=== PATIENT | male | born 1985 | race Caucasian/White ===

== ENCOUNTER 2019-11-05 22:18 | Emergency (ER) | payer BC, SELFPAY ==
[2019-11-05 22:29] VITALS: BP 153/101; PULSE 89; RESP 24; TEMP 36.2; O2SAT 97; BMI 36.9
--- NOTE | 2019-11-05 22:37 | CT_ITS ---
PROCEDURE: CT ABDOMEN PELVIS W CON CLINICAL INDICATION: abd pain Upper abdominal pain with nausea and vomiting COMPARISON: CT ABDOMEN PELVIS WO CON from 07/27/2019 TECHNIQUE: IV Contrast: 75ML OPTIRAY 350 Oral Contrast 20ml Gastroview Axial images obtained with sagittal and coronal reformats. All CT scans at the facility use one or more dose reduction, viz: automated exposure control, ma/kV adjustment per patient size (including targeted exams where dose is matched to indication, i.e. head), or iterative reconstruction technique. FINDINGS: LOWER THORAX: No acute finding ABDOMEN & PELVIS: There is diffuse fatty liver infiltration. There is mild splenomegaly at 13 cm. The adrenal glands, pancreas, gallbladder, and kidneys have an unremarkable appearance. There is a stable hypodensity of the left hepatic lobe laterally at 9 mm and may be due to small cyst. No evidence of appendicitis or diverticulitis. No intestinal obstruction or free air. The bowel gas pattern is nonspecific. There are some nondistended fluid-filled loops of large and small bowel with a few scattered air-fluid levels. There is some fatty infiltration of the wall of the terminal ileum nonspecific. This is nonspecific but may be seen with chronic inflammatory bowel disease. No abscess or focal acute inflammatory changes are evident. The the there are no acute bony anomalies. Collateral vessels are present in the inguinal regions on both sides IMPRESSION: 1. Nonspecific bowel gas pattern with scattered air-fluid levels in large and small bowel without distention and mild fatty infiltration of the terminal ileum which could be seen with chronic or prior episodes of enteritis. 2. Fatty liver with mild splenomegaly 3. Collateral veins in the inguinal regions Dictated by: Bernardo Nuñez MD 11/06/2019 07:52 Electronically signed by Bernardo Nuñez MD in [place] 11/06/2019 07:52
--- NOTE | 2019-11-05 22:47 | HMH.EDNVD ---
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 The time I documented below is in addition to time spent performing reported procedures but includes the following listed in this critical care notation. Medical Decision Making - Medical Records Medical records reviewed: Yes: I reviewed the patient's medical records. - Kaz Inquiry Pt receiving controlled substance: No Vital Signs: 11/05/19 22:29 Temperature 97.2 F L Temperature Source Oral Pulse Rate [Right Brachial] 89 Respiratory Rate 24 Blood Pressure [Right Arm] 153/101 H Blood Pressure Mean [Right Arm] 118 Blood Pressure Source [Right Arm] Automatic Cuff Blood Pressure Position [Right Arm] Sitting 02 Sat by Pulse Oximetry 97 Oxygen Delivery Method Room Air - Lab Data Lab results reviewed: Yes: I reviewed the patient's lab results. Lab Results 11/05/19 22:30: Urine Color Yellow, Urine Appearance Clear, Urine pH 6.0, Ur Specific [place] >= 1.030, Urine Protein 1+, Urine Glucose (UA) Negative, Urine Ketones Negative, Urine Blood Negative, Urine Nitrate Negative, Urine Bilirubin Negative, Urine Urobilinogen 0.2, Ur Leukocyte Esterase Negative, Urine WBC Occasional, Ur Squamous Epith Cells Occasional, Urine Bacteria Trace 11/05/19 22:44: WBC 10.4, RBC 5.21, Hgb 15.5, Hct 46.2, MCV 88.8, MCH 29.7, MCHC 33.5, RDW 13.7, Plt Count 449 H, MPV 6.5 L, Neut % (Auto) 69.3, Lymph % (Auto) 20.5, [place] % (Auto) 7.8, Eos % (Auto) 1.8, Baso % (Auto) 0.6, Neut # (Auto) 7.2, Lymph # (Auto) 2.1, [place] # (Auto) 0.8, Eos # (Auto) 0.2, Baso # (Auto) 0.1 11/05/19 22:44: Sodium 134 L, Potassium 3.1 L, Chloride 99, Carbon Dioxide 26, Anion Gap 12.1, BUN 19, Creatinine 0.90, Estimated Creat Clear 197, Estimated GFR 97, Est GFR ( Amer) 117, Glucose 118 H, Calcium 9.2, Total Bilirubin 0.8, AST 66 H, ALT 76, Alkaline Phosphatase 118, Total Protein 7.9, Albumin 4.5, Globulin 3.4 H, Albumin/Globulin Ratio 1.3, Amylase 55, Lipase 216 11/05/19 22:44: Magnesium 1.7 Result diagrams: 11/05/19 22:44 11/05/19 22:44 Orders (Tests/Meds): ED MEDICATIONS Generic Name Dose Route Start Last Admin Trade Name Freq PRN Reason Stop Dose Admin Sodium Chloride 1,000 mls @ 999 mls/hr 11/05/19 22:45 11/05/19 22:45 Sod Chlor 0.9% 1000ml Bag IV 11/05/19 23:45 999 mls/hr .Q1H1M MIKE Administration Sodium Chloride 8 ml 11/05/19 22:38 Sodium Chloride 0.9% 10ml Vial IV 12/05/19 22:37 NEEDED PRN dilute pepcid Discontinued Medications Generic Name Dose Route Start Last Admin Trade Name Freq PRN Reason Stop Dose Admin Famotidine 20 mg 11/05/19 22:38 11/05/19 22:45 Pepcid 20mg/2ml Vial IV 11/05/19 22:39 20 mg ONCE ONE Administration Ioversol 75 ml 11/05/19 23:15 11/05/19 23:19 Rad-Optiray 350 100ml Vial IV 11/05/19 23:16 75 ml ONCE ONE Administration Protocol Metoclopramide HCl 10 mg 11/05/19 22:38 11/05/19 22:45 Reglan 10mg/2ml Vial IVP 11/05/19 22:39 10 mg ONCE ONE Administration Sodium Chloride 10 ml 11/05/19 23:15 11/05/19 23:19 Rad-Saline Flush 10ml Syringe IV 11/05/19 23:16 10 ml ONCE ONE Administration ORDERS Category Date Time Status CT abdomen pelvis w con Stat Cat Scan 11/05/19 22:37 Taken - CT Data CT Scan: Abdomen, Pelvis Time Received: 23:[address] Reviewed: Yes: I h
[2019-11-05 22:49] LABS: Microscopic, Urine URINE MICROSCOPIC (MICROSCOPIC)
[2019-11-05 22:51] LABS: Basophils # 0.1 K/mm3 (0-0.2); Basophils % 0.6 % (0.1-2.0); Eosinophils # 0.2 K/mm3 (0.0-0.4); Eosinophils % 1.8 % (0.1-12.0); Hematocrit 46.2 % (42.0-52.0); Hemoglobin 15.5 g/dL (14.1-18.0); Lymphocytes # 2.1 K/mm3 (0.7-4.5); Lymphocytes % 20.5 % (10-50); Mean Corpuscular HGB Conc 33.5 g/dL (31.8-35.4); Mean Corpuscular Hemoglobin 29.7 pg (27.0-31.2); Mean Corpuscular Volume 88.8 fl (80-94); Mean Platelet Volume 6.5 fl (7.4-10.4); Monocytes # 0.8 K/mm3 (0.1-1.0); Monocytes % 7.8 % (1.7-9.3); Neutrophils # 7.2 K/mm3 (1.8-7.8); Neutrophils % 69.3 % (37.0-80.0); Platelet Count 449 K/mm3 (142-424); Red Blood Count 5.21 M/mm3 (4.60-6.20); Red Cell Distribution Width 13.7 % (11.5-17.5); White Blood Count 10.4 K/mm3 (4.8-10.8)
[2019-11-05 22:55] LABS: Appearance,Urine CLEAR (Clear); Bilirubin,Urine Negative (Negative); Blood, Urine Negative (Negative); Color,Urine YELLOW (Yellow); Glucose,Urine (UA) Negative (Negative); Ketones,Urine Negative (Negative); Leukocyte Esterase,Urine Negative (Negative); Nitrate,Urine Negative (Negative); Protein,Urine 1+ (Negative); Specific Gravity, Urine >= 1.030 (1.005-1.030); Urobilinogen,Urine 0.2 EU/dl (0.2)
[2019-11-05 22:57] LABS: Chloride 99 mmol/L (98-107)
[2019-11-05 22:58] LABS: Bacteria,Urine Trace /lpf; Squamous Epithelial Cell,Urine Occasional #/hpf (0-5); WBC,Urine Occasional #/hpf (0-3)
[2019-11-05 22:58] LABS: Potassium 3.1 mmoL/L (3.5-5.1); Sodium 134 mmol/L (136-145)
[2019-11-05 23:00] LABS: Amylase 55 U/L (30-110); Blood Urea Nitrogen 19 mg/dl (9-20); Creatinine Clearance Estimated 197 mL/min (50-200); Estimated Glomerular Filt Rate 97 ml/min (>60); GFR (African American) 117 ML/MIN (>60)
[2019-11-05 23:01] LABS: Alanine Aminotransferase 76 U/L (12-78); Albumin Level 4.5 g/dl (3.5-5.0); Albumin/Globulin Ratio 1.3 (1.1-1.8); Alkaline Phosphatase 118 U/L (38-126); Anion Gap 12.1 mEq/L (5-15); Aspartate Amino Transferase 66 U/L (17-59); Bilirubin,Total 0.8 mg/dl (0.2-1.3); Calcium 9.2 mg/dl (8.4-10.2); Carbon Dioxide 26 mmol/L (22.0-30.0); Globulin 3.4 g/dL (1.3-3.2); Glucose 118 mg/dl (74-100); Lipase 216 U/L (23-300); Total Protein,Serum 7.9 g/dl (6.3-8.2)
[2019-11-05 23:02] LABS: Magnesium 1.7 mg/dl (1.6-2.3)
[2019-11-05 23:40] VITALS: BP 125/71; PULSE 79; RESP 19; TEMP 36.8; O2SAT 98
== END 2019-11-05 23:51 | disposition home or self-care (01) ==
PROVIDERS: Emergency Provider Emergency Medicine; PCP Pediatrics
DX: K29.60 Other gastritis without bleeding (principal); R10.84 Generalized abdominal pain
CPT/HCPCS: 74177; 80053; 81001; 82150; 83690; 83735; 85025; 96365; 96375; 99282; 99283; J1642; Q9967

== ENCOUNTER 2020-05-01 14:31 | Emergency (ER) | payer BC, SELFPAY ==
[2020-05-01 14:45] VITALS: BP 110/84; PULSE 97; RESP 19; TEMP 36.6; O2SAT 99; BMI 32.4
--- NOTE | 2020-05-01 15:07 | HMH.EDUTC ---
[facility] [place] Disposition Clinical Impression: Close exposure to COVID-19 virus, Encounter for laboratory testing for COVID-19 virus Disposition: Home, Self-Care Condition on Discharge: Good Instructions: Preventing the Spread of Coronavirus Discharge Instructions Additional Instructions: *Monitor Temp, Over the counter Motrin or Tylenol as directed/as needed Tylenol every 4 hours and Motrin every 6 hours (as long as your family doctor has told you that you can take it) for fever or pain. and straight to ER if unable to lower temp less than 101.0 after medication given *Warm salt water gargles may help to soothe the throat *Throat Lozenges *Warm fluids like tea with honey may help to soothe the throat *Sleep elevated *Humidifier/Vaporizer Follow up IMMEDIATELY for new or worsening symptoms or no Noticeable improvement over the next 48-72 hours. 911 for difficulty breathing or swallowing You was tested for today for COVID19 your test result should be back in the next 24-48 hours, you may call back on Tuesday to see if your test results are back and the result You was given a handout with instructions for Self Quarantine and Self isolation for while you wait on test results and what to do if they are positive Referrals: Chepe Rodgers [Primary Care Provider] - Forms: Work/School Release Time of Disposition: 15:11 Medical Decision Making - Kaz Inquiry Pt receiving controlled substance: No Kaz was queried for this patient: No Vital Signs: 05/01/20 14:45 Temperature 97.8 F Temperature Source Oral Pulse Rate [Right Brachial] 97 H Respiratory Rate 19 Blood Pressure [Right Arm] 110/84 Blood Pressure Mean [Right Arm] 92 Blood Pressure Source [Right Arm] Automatic Cuff 02 Sat by Pulse Oximetry 99 Oxygen Delivery Method Room Air Orders (Tests/Meds): ORDERS Category Date Time Status Covid-19 Nasal PCR Sendout Raul Stat Lab 05/01/20 14:42 Ordered [facility] [place] HPI - General Stated complaint: Covid exposure Time Seen by Provider: 05/01/20 15:07 Mode of Arrival: Ambulatory Source of Information: Patient Limitations: No Limitations Description of Symptoms (Recalled from Triage Doc. by RN): PATIENT REQUESTING COVID TEST D/T EXPOSURE; C/O COUGH HEENT Symptoms (Recalled from RN notes): No Resp Symptoms (Recalled from RN notes): Yes Skin Symptoms (Recalled from RN notes): No MS Symptoms (Recalled from RN notes): No Functional Status (Recalled from RN notes): WNL - History of Present Illness Provider Complaint: Patient state that he was around his sister that recently tested positive for COVID State that he isnt having any symtpoms except cough Denies fever denies sore throat State that he recently had his stomach removed and they recommended to get him tested - Related Data Home Medications Medication Instructions Recorded Confirmed Doxycycline Hyclate [Doxycycline 100 mg PO BID 01/30/19 11/05/19 100mg Capsule] Omeprazole [Omeprazole 20mg Tab] 20 mg PO DAILY 01/30/19 11/05/19 PARoxetine HCL [Paxil 20mg Tablet] 20 mg PO DAILY 01/30/19 11/05/19 Sucralfate [Sucralfate 1gm 1 gm PO QID 01/30/19 11/05/19 Tab] Allergies Allergy/AdvReac Type Severity Reaction Status Date / Time venom-honey bee AdvReac Verified 11/03/18 02:56 - Worker's Comp Is this a Worker's Comp case?: No [facility] History - Hepatitis A Screen Drug use history?: No High risk sexual behaviors?: No History of sexually transmitted infection?: No Currently employed?: No Childcare worker?: No Do you have indoor plumbing?: Yes Do you have electricity?: Yes Attestation statement:: This patient has been screened for Hepatitis A risk factors. 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
[2020-05-01 15:17] VITALS: BP 110/84; PULSE 97; RESP 19; TEMP 36.6; O2SAT 99
[2020-05-01 23:34] LABS: Adenovirus,PCR Not Detected (NotDetected); Bordetella Pertussis Not Detected (NotDetected); Chlamydophila Pneumoniae, PCR Not Detected (NotDetected); Coronavirus 19, PCR Not Detected (NotDetected); Coronavirus 229E Not Detected (NotDetected); Coronavirus NL63 Not Detected (NotDetected); Coronavirus OC43 Not Detected (NotDetected); Coronovirus HKU1,PCR Not Detected (NotDetected); Human Metapneumovirus Not Detected (NotDetected); Influenza A, PCR Not Detected (NotDetected); Influenza AH1, 2009 Not Detected (NotDetected); Influenza AH1, PCR Not Detected (NotDetected); Influenza AH3,PCR Not Detected (NotDetected); Influenza B, PCR Not Detected (NotDetected); Mycoplasma Pneumoniae, PCR Not Detected (NotDetected); Parainfluenza 1, PCR Not Detected (NotDetected); Parainfluenza 2, PCR Not Detected (NotDetected); Parainfluenza 3, PCR Not Detected (NotDetected); Parainfluenza 4, PCR Not Detected (NotDetected); Respiratory Syncytial Virus Not Detected (NotDetected)
[2020-05-02 03:41] LABS: Rhinovirus/Enterovirus Detected (NotDetected)
== END 2020-05-01 15:20 | disposition home or self-care (01) ==
PROVIDERS: Emergency Provider Nurse Practitioner; PCP Pediatrics
DX: Z20.828 Contact with and (suspected) exposure to other viral communicable diseases (principal)
CPT/HCPCS: 87581; 87633; 87798; 99201; U0003

== ENCOUNTER 2020-06-06 23:26 | Emergency (ER) | payer BC, SELFPAY ==
[2020-06-06 23:28] VITALS: BP 150/99; PULSE 108; RESP 18; TEMP 36.9; O2SAT 99; BMI 30.7
--- NOTE | 2020-06-06 23:44 | HMH.EDGENADL ---
ED Disposition Clinical Impression: Urticaria Disposition: Home, Self-Care Condition on Discharge: Good Additional Instructions: Take the benadryl for itching, return if you develop trouble breathing Referrals: Chepe Rodgers [Primary Care Provider] - - Critical Care Critical Care Time: No Attestation: On 06/06/20, the high probability of a clinically significant, sudden or life threatening deterioration of the following system(s) required my full and direct attention, intervention and personal management. The time I documented below is in addition to time spent performing reported procedures but includes the following listed in this critical care notation. Medical Decision Making - Kaz Inquiry Pt receiving controlled substance: No Vital Signs: 06/06/20 23:28 Temperature 98.4 F Temperature Source Oral Pulse Rate [Left Radial] 108 H Respiratory Rate 18 Blood Pressure [Right Arm] 150/99 H Blood Pressure Mean [Right Arm] 116 Blood Pressure Source [Right Arm] Automatic Cuff Blood Pressure Position [Right Arm] Sitting 02 Sat by Pulse Oximetry 99 Oxygen Delivery Method Room Air Orders (Tests/Meds): ED MEDICATIONS Generic Name Dose Route Start Last Admin Trade Name Freq PRN Reason Stop Dose Admin Diphenhydramine HCl 25 mg 06/06/20 23:45 06/07/20 00:00 Diphenhydramine Elixir 12.5mg/5ml Udc PO 07/06/20 23:44 25 mg ONCE MIKE Administration Discontinued Medications Generic Name Dose Route Start Last Admin Trade Name Freq PRN Reason Stop Dose Admin Diphenhydramine HCl 25 mg 06/06/20 23:43 06/06/20 23:55 Diphenhydramine 25mg Capsule PO 06/06/20 23:44 Not Given ONCE ONE Famotidine 20 mg 06/06/20 23:43 06/06/20 23:55 Famotidine 20mg Tablet PO 06/06/20 23:44 Not Given ONCE ONE Methylprednisolone Sodium Succinate 125 mg 06/06/20 23:50 06/06/20 23:59 Methylprednisolone Sod Succ 125mg Vial IM 06/06/20 23:51 125 mg ONCE ONE Administration Prednisone 60 mg 06/06/20 23:42 06/06/20 23:55 Prednisone 20mg Tab PO 06/06/20 23:43 Not Given ONCE ONE Medical Decision Narrative: Patient is a 34 year old male who presents with rash. No involvement of the palms or soles. No respiratory symptoms. consistent with allergic reaction without anaphylaxis. No concern for cellulitis, abscess, life threatening etiology. Given solumedrol IM and diphenhydramine. Will discharge home with return precautions. General Adult HPI - General Stated complaint: Rash on Chest;back;legs Time Seen by Provider: 06/06/20 23:44 - History of Present Illness HPI narrative: Patient is a 34 year old male who presents with rash. he states this happened just prior to arrival. it is itchy. no trouble breathing, nausea, vomiting. No known allergies. No new detergents, lotions, etc. No other complaints. - Related Data Allergies Allergy/AdvReac Type Severity Reaction Status Date / Time venom-honey bee AdvReac Verified 11/03/18 02:56 [facility] History - Hepatitis A Screen Attestation statement:: This patient has been screened for Hepatitis A risk factors. 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) Amputation: No Fractures: Yes (ARM) - Social History Smoking Status: Never smoker Tobacco Type: cigarettes # Packs/Day (cigarettes): 1 Alcohol Intake: never Alcohol Intake Frequency:: holidays/special occasions only Occupational Status: other Housing: house Household Members: spouse ROS Obtained: Yes All systems reviewed & no additional complaints Physical Exam - General General appearance: alert, in no apparent distress - Head Head exam: atraumatic, normocephalic, normal inspection - Eye Eye exam: Present: normal appearance, PERRL, EOMI - ENT ENT exam: Present: normal exam, normal oropharynx, mucous membranes moist, TM's normal bilaterally, nor
[2020-06-06 23:58] VITALS: BP 111/74; PULSE 68; RESP 14; O2SAT 100
[2020-06-07 00:38] VITALS: BP 111/74; PULSE 68; RESP 14; TEMP 36.9; O2SAT 98
== END 2020-06-07 00:45 | disposition home or self-care (01) ==
PROVIDERS: Emergency Provider Emergency Medicine; PCP Pediatrics
DX: L50.0 Allergic urticaria (principal)
CPT/HCPCS: 96372; 99282

== ENCOUNTER 2021-03-09 11:51 | Emergency (ER) | payer BC, SELFPAY ==
[2021-03-09] VITALS (7 sets, daily range): BP systolic 110–132; BP diastolic 72–92; PULSE 60–86; RESP 20; TEMP 36.6; O2SAT 97–100; BMI 30.7
--- NOTE | 2021-03-09 11:56 | XR_ITS ---
PROCEDURE: XR CHEST 2V CLINICAL HISTORY: cp Chest pain COMPARISON: CR CXR2V XR chest 2V from 08/29/[address] angio chest from 08/29/2018 FINDINGS: The cardiomediastinal silhouette and pulmonary vascularity are within normal limits. MediPort catheter is present from the right IJ approach. The tip is in the region the brachiocephalic/SVC region. Lungs are clear bilaterally. No acute bony abnormalities. IMPRESSION: No acute findings. Dictated by: Bernardo Nuñez MD 03/09/2021 13:24 Bernardo Nuñez MD in [place] 03/09/2021 13:24
--- NOTE | 2021-03-09 11:58 | HMH.EDGENADL ---
ED Disposition Clinical Impression: Chest wall pain Disposition: Home, Self-Care Condition on Discharge: Good Instructions: DI for Atypical Chest Pain Referrals: Provider,Referral, [Primary Care Provider] - 3 days Time of Disposition: 14:43 - Critical Care Critical Care Time: No Attestation: On , the high probability of a clinically significant, sudden or life threatening deterioration of the following system(s) required my full and direct attention, intervention and personal management. The time I documented below is in addition to time spent performing reported procedures but includes the following listed in this critical care notation. Medical Decision Making - Medical Records Medical records reviewed: Yes: I reviewed the patient's medical records. - Kaz Inquiry Pt receiving controlled substance: No Vital Signs: 03/09/21 11:51 Temperature 97.9 F Temperature Source Oral Pulse Rate [Left Radial] 71 Respiratory Rate 20 Blood Pressure [Right Arm] 125/92 H Blood Pressure Mean [Right Arm] 103 Blood Pressure Source [Right Arm] Automatic Cuff Blood Pressure Position [Right Arm] Sitting 02 Sat by Pulse Oximetry 100 Oxygen Delivery Method Room Air - Lab Data Lab results reviewed: Yes: I reviewed the patient's lab results. Lab Results 03/09/21 11:42: WBC 6.8, RBC 4.24 L, Hgb 14.0 L, Hct 41.9 L, MCV 98.8 H, MCH 33.0 H, MCHC 33.4, RDW 13.2, Plt Count 303, MPV 6.7 L, Neut % (Auto) 70.4, Lymph % (Auto) 21.6, [place] % (Auto) 5.5, Eos % (Auto) 2.1, Baso % (Auto) 0.4, Neut # (Auto) 4.8, Lymph # (Auto) 1.5, [place] # (Auto) 0.4, Eos # (Auto) 0.1, Baso # (Auto) 0.0 03/09/21 11:42: Sodium 141, Potassium 4.0, Chloride 104, Carbon Dioxide 28, Anion Gap 13.0, BUN 16, Creatinine 0.80, Estimated GFR 110, Est GFR ( Amer) 133, Glucose 90, Calcium 9.0, Total Bilirubin 0.6, AST 38, ALT 21, Alkaline Phosphatase 109, Troponin I < 0.01, Total Protein 7.0, Albumin 4.1, Globulin 2.9, Albumin/Globulin Ratio 1.4 03/09/21 11:45: D-Dimer 0.53 H 03/09/21 12:35: SARS-CoV-2 (PCR) Not detected, Influenza A Untype (PCR) Not detected, Influenza Type B (PCR) Not detected Result diagrams: 03/09/21 11:42 03/09/21 11:42 Orders (Tests/Meds): ED MEDICATIONS Discontinued Medications Generic Name Dose Route Start Last Admin Trade Name Elmer PRN Reason Stop Dose Admin Aspirin 324 mg 03/09/21 11:56 Aspirin 81mg Chewable Tablet PO 03/09/21 11:57 ONCE ONE Iopamidol 100 ml 03/09/21 13:58 03/09/21 13:59 Iopamidol-370 (76%);100ml Bottle IV 03/09/21 13:59 100 ml ONCE ONE Administration Sodium Chloride 50 ml 03/09/21 13:58 03/09/21 13:59 0.9 % Sodium Chloride 50 Ml Vial IV 03/09/21 13:59 50 ml ONCE ONE Administration ORDERS Category Date Time Status Troponin I Q3H Lab 03/09/21 15:00 Ordered Troponin I Q3H Lab 03/09/21 18:00 Ordered - Radiology Data #1 Image(s): Chest Image Reviewed: Yes I reviewed the patient's radiology results Preliminary Findings: Normal/NAD - CT Data CT Scan: Chest Time Received: 14:[address] Reviewed: Yes: I have reviewed the patient's CT results Preliminary Findings: Normal/NAD - ECG Data Tracing #1 I reviewed this ECG and interpreted as documented below: Normal sinus rhythm, 75 bpm, no ST elevation or depression, normal intervals, no ectopy. ECG initial impression date: 03/09/21 ECG initial impression time: 11:50 - SUSANA Score for Non-Stemi Age of Patient: 30-39 years old Heart Rate: 70-89 bpm Systolic Blood Pressure: 120-139 mmhg Serum Creatinine: 0.80-1.19 mg/dl CHF [place] Class: I-No CHF Other Risk Factors: None Non-Stemi Risk Score: 58 Medical Decision Narrative: 35yo M evaluated for chest pain and with concern for Covid and pulmonary embolism. Patient is in no acute distress on initial evaluation. Vital signs are unremarkable. EKG is unremarkable as reviewed above. Routine cardiac order set completed. Troponin negative. Chest x-ray
[2021-03-09 12:09] LABS: Basophils % 0.4 % (0.1-2.0); Eosinophils # 0.1 K/mm3 (0.0-0.4); Eosinophils % 2.1 % (0.1-12.0); Hematocrit 41.9 % (42.0-52.0); Lymphocytes # 1.5 K/mm3 (0.7-4.5); Lymphocytes % 21.6 % (10-50); Mean Corpuscular HGB Conc 33.4 g/dL (31.8-35.4); Mean Corpuscular Volume 98.8 fl (80-94); Mean Platelet Volume 6.7 fl (7.4-10.4); Monocytes # 0.4 K/mm3 (0.1-1.0); Monocytes % 5.5 % (1.7-9.3); Neutrophils # 4.8 K/mm3 (1.8-7.8); Neutrophils % 70.4 % (37.0-80.0); Platelet Count 303 K/mm3 (142-424); Red Blood Count 4.24 M/mm3 (4.60-6.20); Red Cell Distribution Width 13.2 % (11.5-17.5); White Blood Count 6.8 K/mm3 (4.8-10.8)
[2021-03-09 12:20] LABS: Chloride 104 mmol/L (98-107); Sodium 141 mmol/L (136-145)
[2021-03-09 12:23] LABS: Alanine Aminotransferase 21 U/L (12-78); Albumin Level 4.1 g/dl (3.5-5.0); Albumin/Globulin Ratio 1.4 (1.1-1.8); Alkaline Phosphatase 109 U/L (38-126); Aspartate Amino Transferase 38 U/L (17-59); Bilirubin,Total 0.6 mg/dl (0.2-1.3); Blood Urea Nitrogen 16 mg/dl (9-20); Carbon Dioxide 28 mmol/L (22.0-30.0); Estimated Glomerular Filt Rate 110 ml/min (>60); GFR (African American) 133 ML/MIN (>60); Globulin 2.9 g/dL (1.3-3.2)
[2021-03-09 12:24] LABS: Glucose 90 mg/dl (74-100)
[2021-03-09 12:36] LABS: Troponin I < 0.01 ng/ml (0.00-0.034)
[2021-03-09 12:56] LABS: Coronavirus 19, PCR Not Detected (NotDetected); Influenza A, PCR Not Detected (NotDetected); Influenza B, PCR Not Detected (NotDetected)
[2021-03-09 13:03] LABS: D-Dimer 0.53 ug/mL (0.0-0.5)
--- NOTE | 2021-03-09 13:10 | CT_ITS ---
PROCEDURE: CT ANGIO CHEST PE PROTOCOL CLINCIAL INDICATION: chest pain, h/o dvt/pe COMPARISON: CT AGCHEST CT angio chest from 08/29/[address] ABDOMEN PELVIS W CON from 11/05/2019 CR XR CHEST 2V from 03/09/2021 TECHNIQUE: IV Contrast: 70ML Isovue 370 Axial images obtained with sagittal and coronal reformats. All CT scans at the facility use one or more dose reduction, viz: automated exposure control, ma/kV adjustment per patient size (including targeted exams where dose is matched to indication, i.e. head), or iterative reconstruction technique. FINDINGS: HEART AND MEDIASTINAL STRUCTURES: No evidence of pulmonary embolus, aortic aneurysm, or aortic dissection. There is mild thickening the esophagus with a air-fluid level and a nondistended mid esophagus which may be seen with reflux. There is a small hiatal hernia. There is been interval gastrectomy. LUNGS AND PLEURAL SPACES: No lobar consolidation or collapse. Minimal nodularity is present in the extreme left lung base in the CP angle nonspecific and could be due to some minimal atelectatic change. Follow-up may confirm stability. BONY STRUCTURES: No acute bony abnormalities apparent. UPPER ABDOMEN: Unremarkable. ADDITIONAL FINDINGS: MediPort catheter is present from right subclavian approach IMPRESSION: 1. No evidence of pulmonary embolus, aortic aneurysm, or aortic dissection. 2. Minimal nodularity left lung base laterally nonspecific. Consider short-term follow-up to confirm stability. 3. Small amount of air within the esophagus with an air-fluid level which could be seen with reflux or delayed transit with small hiatal hernia. Prior gastrectomy. Dictated by: Bernardo Nuñez MD 03/09/2021 14:25 Bernardo Nuñez MD in [place] 03/09/2021 14:25
== END 2021-03-09 14:58 | disposition home or self-care (01) ==
PROVIDERS: Emergency Provider Family Medicine
DX: R07.89 Other chest pain (principal); Z20.822 Contact with and (suspected) exposure to COVID-19
CPT/HCPCS: 71046; 71275; 80053; 84484; 85025; 85378; 99283; C9803; Q9967; U0003; U0005

== ENCOUNTER → 2021-03-26 12:12 | Outpatient (CLI) | payer BC, SELFPAY | PROVIDERS: PCP Pediatrics; Visit Provider Nurse Practitioner | DX: Z20.822 Contact with and (suspected) exposure to COVID-19 (principal) | CPT/HCPCS: C9803; U0003; U0005 ==

== ENCOUNTER → 2021-03-28 12:46 | Outpatient (CLI) | payer BC, SELFPAY | PROVIDERS: Visit Provider Nurse Practitioner Family | DX: Z20.822 Contact with and (suspected) exposure to COVID-19 (principal) | CPT/HCPCS: C9803; U0003; U0005 ==

== ENCOUNTER → 2021-04-01 11:02 | Outpatient (CLI) | payer BC, SELFPAY | PROVIDERS: PCP Pediatrics; Visit Provider Nurse Practitioner | DX: Z20.822 Contact with and (suspected) exposure to COVID-19 (principal) | CPT/HCPCS: C9803; U0003; U0005 ==

== ENCOUNTER → 2021-07-22 12:55 | Outpatient (CLI) | payer OTHER, BC, SELFPAY | PROVIDERS: Visit Provider Nurse Practitioner | DX: Z20.822 Contact with and (suspected) exposure to COVID-19 (principal) | CPT/HCPCS: C9803; U0003; U0005 ==

== ENCOUNTER 2021-09-20 17:49 | Emergency (ER) | payer OTHER, BC, SELFPAY ==
[2021-09-20 18:23] VITALS: BP 154/79; PULSE 124; RESP 18; TEMP 37.4; O2SAT 96; BMI 33.5
[2021-09-20 18:26] LABS: UTC Influenza A Antigen Positive (Negative); UTC Influenza B Antigen Negative (Negative)
[2021-09-20 18:45] LABS: Strep Scrn Group A (Rapid) Positive (Negative)
--- NOTE | 2021-09-20 19:21 | HMH.EDUTC ---
[facility] [place] Disposition Clinical Impression: Influenza A, Strep throat Disposition: Home, Self-Care Condition on Discharge: Good Instructions: DI for Strep Throat, Strep Throat, DI for Influenza -- Adult, Influenza Additional Instructions: Drink plenty of fluids. Take tylenol or ibuprofen for pain or fever. Take the medications as directed. Follow up with your regular doctor. GO TO THE ER FOR ANY WORSENING SYMPTOMS Throw your tooth brush away and get a new one. Prescriptions: Ondansetron [Zofran 4mg ODT] 4 mg PO Q8HP PRN #20 tab PRN Reason: Nausea Transmission Status: Pending to [facility] Amoxicillin/Potassium Clav [Amox-Clav 875-125 mg Tablet] 1 tab PO BID #20 tab Transmission Status: Pending to [facility] Benzonatate [Benzonatate 100mg cap] 100 mg PO TIDP PRN #30 cap PRN Reason: Cough Transmission Status: Pending to [facility] Oseltamivir Phosphate [Tamiflu 75mg Capsule] 75 mg PO BID #10 cap Transmission Status: Pending to [facility] Referrals: Chepe Martinez MD [Primary Care Provider] - Forms: Work/School Release Time of Disposition: 19:27 Medical Decision Making - Medical Records Medical records reviewed: No: I reviewed the patient's medical records. - Kaz Inquiry Pt receiving controlled substance: No Vital Signs: 09/20/21 18:23 Temperature 99.4 F Temperature Source Oral Pulse Rate [Left] 124 H Respiratory Rate 18 Blood Pressure [Right Arm] 154/79 H Blood Pressure Mean [Right Arm] 104 02 Sat by Pulse Oximetry 96 - Lab Data Lab results reviewed: Yes: I reviewed the patient's lab results. Lab Results 09/20/21 18:10: Influenza Type A Ag Positive A, Influenza Type B Ag Negative 09/20/21 18:22: Group A Strep Rapid Positive A Orders (Tests/Meds): ED MEDICATIONS Discontinued Medications Generic Name Dose Route Start Last Admin Trade Name Freq PRN Reason Stop Dose Admin Ceftriaxone Sodium 1 gm 09/20/21 19:00 09/20/21 19:10 Ceftriaxone 1gm Vial IM 09/20/21 19:01 1 gm ONCE ONE Administration Lidocaine HCl 0 ml 09/20/21 19:00 09/20/21 19:10 Lidocaine 1% 5ml Pf Vial IM 09/20/21 19:01 2 ml ONCE ONE Administration Methylprednisolone Sodium Succinate 125 mg 09/20/21 19:00 09/20/21 19:09 Methylprednisolone Sod Succ 125mg Vial IM 09/20/21 19:01 125 mg ONCE ONE Administration [facility] [place] HPI - General Stated complaint: fever,cough SELF Time Seen by Provider: 09/20/21 19:00 Mode of Arrival: Ambulatory Source of Information: Patient Limitations: No Limitations Description of Symptoms (Recalled from Triage Doc. by RN): pt c/o a fever, SELF, cough and nasal congestion. HEENT Symptoms (Recalled from RN notes): Yes Resp Symptoms (Recalled from RN notes): Yes Skin Symptoms (Recalled from RN notes): No MS Symptoms (Recalled from RN notes): No Functional Status (Recalled from RN notes): wnl - History of Present Illness Provider Complaint: He states that he has felt bad for the past 1 day. He has a sore throat, sinus congestion, cough, fever, and chills. - Related Data Previous Rx's Medication Instructions Recorded Amoxicillin/Potassium Clav 1 tab PO BID #20 tab 09/20/21 [Amox-Clav 875-125 mg Tablet] Benzonatate [Benzonatate 100mg 100 mg PO TIDP PRN #30 cap 09/20/21 cap] Ondansetron [Zofran 4mg ODT] 4 mg PO Q8HP PRN #20 tab 09/20/21 Oseltamivir Phosphate [Tamiflu 75 mg PO BID #10 cap 09/20/21 75mg Capsule] Allergies Allergy/AdvReac Type Severity Reaction Status Date / Time venom-honey bee AdvReac Verified 03/28/21 12:55 - Worker's Comp Is this a Worker's Comp case?: No [facility] History - Hepatitis A Screen Drug use history?: No High risk sexual behaviors?: No History of sexually transmitted infection?: No Currently employed?: No Childcare worker?: No Do you have indoor plumbing?: Yes Do you have
[2021-09-20 19:30] VITALS: BP 154/79; PULSE 124; RESP 18; TEMP 37.4
== END 2021-09-20 19:33 | disposition home or self-care (01) ==
PROVIDERS: Emergency Provider Nurse Practitioner Family; PCP Pediatrics
DX: J10.1 Influenza due to other identified influenza virus with other respiratory manifestations (principal); J02.0 Streptococcal pharyngitis
CPT/HCPCS: 87430; 87804; 96372; 99213; G0463; J0696